=== PATIENT | male | born 1950 | race Caucasian/White ===

== ENCOUNTER 2018-03-07 17:28 | Inpatient (IN) ==
[2018-03-07] MEDS ORDERED: Ketorolac Inj 30 MG/ML (IVP) Vial IV.PUSH ONE (19:13)
[2018-03-07 19:38] LABS: Baso # (Auto) 0.1 th/mm3 (0.0-0.2); Baso % (Auto) 1.6 % (0.0-2.0); Eos # (Auto) 0.3 th/mm3 (0.0-0.4); Eos % (Auto) 3.9 % (0.0-4.0); Hematocrit 45.8 % (39.0-51.0); Hemoglobin 15.5 gm/dL (13.0-17.0); Lymph # (Auto) 1.7 th/mm3 (1.0-4.8); Lymph % (Auto) 23.2 % (9.0-44.0); Mean Corpuscular HGB Conc 33.8 % (32.0-36.0); Mean Corpuscular Volume 97.6 fL (80.0-100.0); Mean Platelet Volume 9.6 fL (7.0-11.0); Mono # (Auto) 0.8 th/mm3 (0.0-0.9); Mono % (Auto) 11.9 % (0.0-8.0); Neut # (Auto) 4.2 th/mm3 (1.8-7.7); Neut % (Auto) 59.4 % (16.0-70.0); Platelet Count 161 th/mm3 (150-450); Red Cell Distribution Width 13.5 % (11.6-17.2); White Blood Count 7.1 th/mm3 (4.0-11.0)
[2018-03-07 19:45] LABS: Chloride 106 meq/L (98-107); Potassium 4.1 meq/L (3.5-5.1); Sodium 139 meq/L (136-145)
[2018-03-07 19:48] LABS: Albumin 3.6 g/dL (3.4-5.0); Anion Gap 9 meq/L (5-15); Calcium 8.5 mg/dL (8.5-10.1); Carbon Dioxide 24.2 meq/L (21.0-32.0); Glucose,Random 95 mg/dL (74-106)
[2018-03-07 19:49] LABS: Blood Urea Nitrogen 25 mg/dL (7-18)
[2018-03-07 19:52] LABS: Aspartate Aminotransferase 20 U/L (15-37); Glomerular Filtration Rate 67 mL/min (>89)
[2018-03-07 19:53] LABS: Total Protein 6.9 g/dL (6.4-8.2)
[2018-03-07 19:54] LABS: Alkaline Phosphatase 63 U/L (45-117)
[2018-03-07 19:56] LABS: Alanine Aminotransferase 24 U/L (12-78)
--- NOTE | 2018-03-07 20:02 | XR ---
EXAM DATE: 03/07/2018 7:58 PM EDT AGE/SEX: 67 years / Male INDICATIONS: . Right posterior shoulder pain, no known trauma. CLINICAL DATA: This is the patient's initial encounter. Patient reports that signs and symptoms have been present for 2 days and indicates a pain score of 4/10. MEDICAL/SURGICAL HISTORY: None. None. COMPARISON: No prior exams available for comparison. FINDINGS: PA and lateral views of the chest. Linear atelectasis or scarring at the right lung base. The lungs are otherwise clear. Cardiomediastinal silhouette within normal limits. No evidence of pl eural effusion or pneumothorax. CONCLUSION: Atelectasis or scarring at right lung base. No other acute cardiopulmonary disease identi fied. Electronically signed by: Lew Lu MD 03/07/2018 8:01 PM EDT
--- NOTE | 2018-03-07 20:03 | XR ---
EXAM DATE: 03/07/2018 8:00 PM EDT AGE/SEX: 67 years / Male INDICATIONS: Right posterior shoulder pain, no known trauma. CLINICAL DATA: This is the patient's initial encounter. Patient reports that signs and symptoms have been present for 2 days and indicates a pain score of 4/10. MEDICAL/SURGICAL HISTORY: None. None. COMPARISON: No prior exams available for comparison. FINDINGS: 2 views of the right shoulder. High riding humeral head suggesting rotator cuff tendon insufficiency. Minimal acromial clavicular joint arthritic findings. No evidence of fracture. Glenohumeral joint wi thin normal limits. CONCLUSION: High riding humeral head suggesting rotator cuff tendon insufficiency. Electronically signed by: Lew Lu MD 03/07/2018 8:01 PM EDT
--- NOTE | 2018-03-07 20:21 | ED ---
HPI General Chief complaint: Shortness of Breath/Dyspnea Stated complaint: c/oR back pain x 2 days Time Seen by Provider: 03/07/18 19:12 Source: patient Mode of arrival: ambulatory Limitations: no limitations History of Present Illness HPI narrative: Patient is a 67-year-old male who comes in complaining of right- sided upper back pain. He says this is been going on for the past 2 or 3 months , but in the past few days it has gotten worse. He has taken Tylenol for the pain without relief. He says the pain is worse with walking and standing and sometimes gets so bad he feels short of breath. He denies any urinary symptoms. He denies chest pain. He denies any abdominal pain. He denies fever chills. Severity is mild to moderate. Related Data Home Medications Medication Instructions Recorded Confirmed meclizine 25 mg PO Q4H PRN 03/07/18 03/07/18 melatonin 3 mg PO HS 03/07/18 03/07/18 metoprolol succinate 03/07/18 rivaroxaban 20 mg PO Q6PM 03/07/18 03/07/18 simvastatin 03/07/18 tamsulosin 0.4 mg PO DAILY 03/07/18 03/07/18 Allergies Allergy/AdvReac Type Severity Reaction Status Date / Time No Known Allergies Allergy Unverified 03/07/18 17:57 Review of Systems ROS: all other systems reviewed are negative Constitutional Denies chills and Denies fever(s) ENT Denies dizziness Cardiovascular Denies chest pain Respiratory Denies cough Gastrointestinal Denies abdominal pain, Denies nausea and Denies vomiting Musculoskeletal Reports back pain Integumentary/Breasts Denies rash and Denies wounds Neurologic Denies numbness and Denies weakness PMFSH Medical History Medical History DVT (deep venous thrombosis) (Acute) Enlarged prostate (Acute) Pulmonary embolism (Acute) Vertigo (Acute) Surgical History Surgical History History of appendectomy (Acute) Hx of tonsillectomy (Acute) Social History Social History Substance History: No History of Abuse Second Hand Smoke Exposure: No Smoking Status: Former smoker How Often Do You Have a Drink Containing Alcohol: Never Recent Travel in [facility] within the Last 8 Weeks: Yes Recent Out of Country Travel within the Last 8 Weeks: No Immunization History Tetanus Immunization: <5 Years Hx Influenza Vaccine This Season: Yes Exam Narrative Exam Narrative: GENERAL: Awake and alert, in no acute distress. SKIN: Focused skin assessment warm/dry. No wounds or signs of infection. HEAD: Atraumatic. Normocephalic. EYES: Pupils equal and round. No scleral icterus. ENT: Mucous membranes pink and moist. NECK: Trachea midline. No JVD. CARDIOVASCULAR: Regular rate and rhythm. No murmur appreciated. RESPIRATORY: No accessory muscle use. Clear to auscultation. Breath sounds equal bilaterally. GASTROINTESTINAL: Abdomen soft, non-tender, nondistended. MUSCULOSKELETAL: No obvious deformities. No clubbing. No cyanosis. No edema. No spinal tenderness. Tenderness around the right scapula. No CVA tenderness. NEUROLOGICAL: Awake and alert. No obvious cranial nerve deficits. Motor grossly within normal limits. Normal speech. PSYCHIATRIC: Appropriate mood and affect; insight and judgment normal. Course Initial Documented Vital Signs Temperature 98.8 F 03/07/18 17:54 Pulse Rate 70 03/07/18 17:54 Respiratory Rate 16 03/07/18 17:54 Blood Pressure 101/58 L 03/07/18 17:54 Pulse Oximetry 99 03/07/18 17:54 Last Documented Vital Signs Temperature 98.8 F 03/07/18 17:54 Pulse Rate 60 03/08/18 02:02 Respiratory Rate 20 03/08/18 02:02 Blood Pressure 114/69 03/08/18 02:02 Pulse Oximetry 97 03/08/18 02:02 Medical Decision Making [facility] Narrative Medical decision making narrative: Patient is a 67-year-old male who comes in complaining pain. Exam shows tenderness around the right scapula. IV established, labs sent. X-ray of the chest and scapular ordered. Patient given pain medicine. After taking history and ordering several diagnostic tests and receiving results , patient informed me that he is worried that he might have a pulmonary embolus. He says that he has history of pulmonary emboli and is currently taking Xarelto. He says he felt like this when he was diagnosed with one in 2013. I am not sure why he did not divulge this information when we originally spoke. CTA of the chest ordered shows a right-sided pulmonary emboli. Patient given Lovenox. He does say that his symptoms, while present for the past 2 or 3 months have worsened in the past few days since driving to [place], making this concerning for a new PE.He will be admitted for further management as he has already been on Xarelto and is still forming clots. Medical Screen Exam Complete: Yes Emergency Medical Condition: Yes Differential Diagnosis Differential Diagnosis: Muscle strain versus renal stone versus PE versus pneumonia Medical Records Medical records reviewed: Yes I reviewed the patient's medical records. Lab Data Lab results reviewed: Yes I reviewed the patient's lab results. Result diagrams: 03/07/18 19:15 03/07/18 19:15 Lab Results 03/07/18 03/07/18 03/07/18 Range/Units 19:15 19:15 19:15 CBC w Diff Auto diff final WBC 7.1 (4.0-11.0) th/mm3 RBC 4.70 (4.50-5.90) mil/mm3 Hgb 15.5 (13.0-17.0) gm/dL Hct 45.8 (39.0-51.0) % MCV 97.6 (80.0-100.0) fL MCH 33.0 (27.0-34.0) pg MCHC 33.8 (32.0-36.0) % RDW 13.5 (11.6-17.2) % Plt Count 161 (150-450) th/mm3 MPV 9.6 (7.0-11.0) fL Neut % (Auto) 59.4 (16.0-70.0) % Lymph % (Auto) 23.2 (9.0-44.0) % [place] % (Auto) 11.9 H (0.0-8.0) % Eos % (Auto) 3.9 (0.0-4.0) % Baso % (Auto) 1.6 (0.0-2.0) % Neut # (Auto) 4.2 (1.8-7.7) th/mm3 Lymph # (Auto) 1.7 (1.0-4.8) th/mm3 [place] # (Auto) 0.8 (0.0-0.9) th/mm3 Eos # (Auto) 0.3 (0.0-0.4) th/mm3 Baso # (Auto) 0.1 (0.0-0.2) th/mm3 WBC Differential . Differential Comment . Sodium 139 (136-145) meq/L Potassium 4.1 (3.5-5.1) meq/L Chloride 106 (98-107) meq/L Carbon Dioxide 24.2 (21.0-32.0) meq/L Anion Gap 9 (5-15) meq/L BUN 25 H (7-18) mg/dL Creatinine 1.10 (0.60-1.30) mg/dL Estimated GFR 67 L (>89) mL/min Random Glucose 95 (74-106) mg/dL Calcium 8.5 (8.5-10.1) mg/dL Total Bilirubin 0.9 (0.2-1.0) mg/dL AST 20 (15-37) U/L ALT 24 (12-78) U/L Alkaline Phosphatase 63 (45-117) U/L Troponin I Less than 0.02 L (0.02-0.05) ng/mL B-Natriuretic Peptide 52 (0-100) pg/mL Total Protein 6.9 (6.4-8.2) g/dL Albumin 3.6 (3.4-5.0) g/dL Urine Color (Yellw/Straw) Urine Clarity (Clear) Urine pH (5.0-8.5) Ur Specific [place] (1.002-1.035) Urine Protein (Neg-Trace) mg/dL Urine Glucose (UA) (Negative) mg/dL Urine Ketones (Negative) mg/dL Urine Occult Blood (Negative) Urine Nitrate (Negative) Urine Bilirubin (Negative) Urine Urobilinogen (Less than 2) mg/dL Ur Leukocyte Esterase (Negative) Urine RBC (0-3) /hpf Urine WBC (0-5) /hpf Ur Squamous Epith Cells (0-5) /hpf Micro UA Comment Ur Microscopic Review Urine Culture Comments 03/07/18 Range/Units 20:00 CBC w Diff WBC (4.0-11.0) th/mm3 RBC (4.50-5.90) mil/mm3 Hgb (13.0-17.0) gm/dL Hct (39.0-51.0) % MCV (80.0-100.0) fL MCH (27.0-34.0) pg MCHC (32.0-36.0) % RDW (11.6-17.2) % Plt Count (150-450) th/mm3 MPV (7.0-11.0) fL Neut % (Auto) (16.0-70.0) % Lymph % (Auto) (9.0-44.0) % [place] % (Auto) (0.0-8.0) % Eos % (Auto) (0.0-4.0) % Baso % (Auto) (0.0-2.0) % Neut # (Auto) (1.8-7.7) th/mm3 Lymph # (Auto) (1.0-4.8) th/mm3 [place] # (Auto) (0.0-0.9) th/mm3 Eos # (Auto) (0.0-0.4) th/mm3 Baso # (Auto) (0.0-0.2) th/mm3 WBC Differential Differential Comment Sodium (136-145) meq/L Potassium (3.5-5.1) meq/L Chloride (98-107) meq/L Carbon Dioxide (21.0-32.0) meq/L Anion Gap (5-15) meq/L BUN (7-18) mg/dL Creatinine (0.60-1.30) mg/dL Estimated GFR (>89) mL/min Random Glucose (74-106) mg/dL Calcium (8.5-10.1) mg/dL Total Bilirubin (0.2-1.0) mg/dL AST (15-37) U/L ALT (12-78) U/L Alkaline Phosphatase (45-117) U/L Troponin I (0.02-0.05) ng/mL B-Natriuretic Peptide (0-100) pg/mL Total Protein (6.4-8.2) g/dL Albumin (3.4-5.0) g/dL Urine Color Yellow (Yellw/Straw) Urine Clarity Clear (Clear) Urine pH 6.0 (5.0-8.5) Ur Specific [place] 1.020 (1.002-1.035) Urine Protein Negative (Neg-Trace) mg/dL Urine Glucose (UA) Negative (Negative) mg/dL Urine Ketones Negative (Negative) mg/dL Urine Occult Blood Negative (Negative) Urine Nitrate Negative (Negative) Urine Bilirubin Negative (Negative) Urine Urobilinogen 1.0 (Less than 2) mg/dL Ur Leukocyte Esterase Negative (Negative) Urine RBC 0-3 (0-3) /hpf Urine WBC 0-5 (0-5) /hpf Ur Squamous Epith Cells 0-5 (0-5) /hpf Micro UA Comment Culture not ind Ur Microscopic Review Microscopic reviewed Urine Culture Comments Culture not ind Imaging Data Radiologist's impression: Chest X-Ray 03/07/18 19:13 CONCLUSION: Atelectasis or scarring at right lung base. No other acute cardiopulmonary disease identified. Scapula X-Ray 03/07/18 19:13 CONCLUSION: High riding humeral head suggesting rotator cuff tendon insufficiency. Abdomen/Pelvis CT 03/07/18 20:32 CONCLUSION: 1. Tiny gallstone. 2. Fat-containing left inguinal hernia. 3. No definite acute CT findings in the abdomen or pelvis. Chest CTA 03/07/18 21:38 CONCLUSION: 1. Truncation of right lower lobe branches and filling defect at the proximal right lower lobe pulmonary artery. Findings indicate age-indeterminate pulmonary embolus. The patient gives a history of pulmonary embolism. No comparison studies are available. 2. Mild emphysema. Scarring at the right lower lobe. Discharge Plan Discharge Disposition Patient Disposition: 30 Still Patient Discharge Condition Condition: Stable Discharge Details Diagnosis: Pulmonary embolism on right Physicians Team ED Provider: Yaneth Vázquez Primary Care Provider: [facility] [place] Attending Provider: Shameka Puga Other Providers: Hiram Day Discharge Interventions Interventions: ED Discharge Assessment Last Done: 03/08/18 02:00 Vital Signs Last Done: 03/08/18 02:02 Status ED Status: Left Department Discharge Information Discharge Date/Time: 03/08/18 02:03
[2018-03-07 20:39] LABS: Bilirubin,Urine Negative (Negative); Clarity,Urine Clear (Clear); Color,Urine Yellow (Yellw/Straw); Glucose,Urine (UA) Negative (Negative); Leukocyte Esterase,Urine Negative (Negative); Nitrite,Urine Negative (Negative)
[2018-03-07 20:49] LABS: RBC,Urine 0-3 /hpf (0-3); WBC,Urine 0-5 /hpf (0-5)
[2018-03-07 20:50] LABS: Squamous Epithelial Cell,Urine 0-5 /hpf (0-5)
--- NOTE | 2018-03-07 23:03 | CT ---
EXAM DATE: 03/07/2018 10:47 PM EDT AGE/SEX: 67 years / Male INDICATIONS: Abdominal pain. CLINICAL DATA: This is the patient's initial encounter. Patient reports that signs and symptoms have been present for 1 day and indicates a pain score of 5/10. MEDICAL/SURGICAL HISTORY: . Deep venous thrombosis. Enlarged prostate. Pulmonary embolism. Vert igo. Appendectomy. Tonsillectomy. RADIATION DOSE: 17.33 CTDI (mGy) COMPARISON: No prior exams available for comparison. TECHNIQUE: Multiple contiguous axial images were obtained through the abdomen. Images were obtained using multiple row detector helical technique. Using automated exposure control and adjustment of the mA and/or kV according to patient size, radiation dose was kept as low as reasonably achievable to o btain optimal diagnostic quality images. DICOM format image data is available electronically for rev iew and comparison. FINDINGS: Lower Lungs: Mild scarring or atelectasis in the right lung base. Liver: The liver has a homogeneous density without space-occupying lesion. There is no dilation of th e biliary tree. Tiny gallstone. Spleen: Homogeneous density without enlargement. Pancreas: Unremarkable without mass or calcification. Kidneys: Normal in size and shape. No evidence of mass or hydronephrosis. Adrenal Glands: Unremarkable. Aorta: The aorta and proximal iliac vessels are grossly unremarkable without aneurysmal dilation. Bowel/Mesentery: The bowel loops are grossly unremarkable. The cecum and sigmoid colon have a normal configuration. Abdominal Wall: Intact. Retroperitoneum: No evidence of adenopathy in the retrocrural, para-aortic, or deep pelvic regions. Bladder: Contours are smooth. Reproductive Organs: Prostate is enlarged. No evidence of pelvic mass or free fluid. Inguinal: Fat-containing left inguinal hernia. Bony Structures: Unremarkable. CONCLUSION: 1. Tiny gallstone. 2. Fat-containing left inguinal hernia. 3. No definite acute CT findings in the abdomen or pelvis. Electronically signed by: Jason Redding MD 03/07/2018 11:02 PM EDT
--- NOTE | 2018-03-07 23:04 | CT ---
EXAM DATE: 03/07/2018 10:47 PM EDT AGE/SEX: 67 years / Male INDICATIONS: Back and chest pain. CLINICAL DATA: This is the patient's initial encounter. Patient reports that signs and symptoms have been present for 1 day and indicates a pain score of 5/10. MEDICAL/SURGICAL HISTORY: . Deep venous thrombosis. Enlarged prostate. Pulmonary embolism. Vertigo. Appendectomy. Tonsillectomy. RADIATION DOSE: 17.02 CTDI (mGy) COMPARISON: No prior exams available for comparison. TECHNIQUE: Volumetric scanning was performed using a multi-row detector CT scanner during bolus infu phil of 75 ml Omnipaque 350 (iohexol) nonionic water-soluble contrast as a single exam dose. The miri a was post processed with a variety of visualization algorithms including full volume maximum intensi ty projection and sliding thin slab reformation. Using automated exposure control and adjustment of the mA and/or kV according to patient size, radiation dose was kept as low as reasonably achievable t o obtain optimal diagnostic quality images. DICOM format image data is available electronically for review and comparison. FINDINGS: Pulmonary Arteries: There is truncation and attenuation of lower lobe branches of the right pulmonar y artery. Filling defect of proximal lower lobe branch is noted. Findings indicate pulmonary embolus. This finding is age-indeterminate and could represent an old pulmonary embolus. No abnormal filling defects on the left or in the right upper lobe or middle lobe branches. Lung: Mild paraseptal emphysema at the apices. Scarring at the right lower lobe. Effusion: None. Mediastinum: No evidence of mediastinal or hilar adenopathy. Coronary artery calcification. Other: The axilla is unremarkable. CONCLUSION: 1. Truncation of right lower lobe branches and filling defect at the proximal right lower lobe pulmo nary artery. Findings indicate age-indeterminate pulmonary embolus. The patient gives a history of pu lmonary embolism. No comparison studies are available. 2. Mild emphysema. Scarring at the right lower lobe. Electronically signed by: Lew Lu MD 03/07/2018 11:03 PM EDT
[2018-03-07] MEDS ORDERED: Enoxaparin Inj 100 MG/ML Syringe SQ ONE (23:39)
[2018-03-07] MEDS ORDERED: Acetaminophen 325 MG Tablet PO PRN (23:57)
[2018-03-07] MEDS ORDERED: Bisacodyl 10 MG Supp RECTAL PRN (23:57)
[2018-03-08 02:03] VITALS: RESP 20
[2018-03-08 08:23] LABS: Baso % (Auto) 0.6 % (0.0-2.0); Eos # (Auto) 0.3 th/mm3 (0.0-0.4); Eos % (Auto) 4.6 % (0.0-4.0); Hematocrit 42.8 % (39.0-51.0); Hemoglobin 14.8 gm/dL (13.0-17.0); Lymph # (Auto) 1.8 th/mm3 (1.0-4.8); Lymph % (Auto) 31.5 % (9.0-44.0); Mean Corpuscular HGB Conc 34.7 % (32.0-36.0); Mean Corpuscular Hemoglobin 33.1 pg (27.0-34.0); Mean Corpuscular Volume 95.3 fL (80.0-100.0); Mean Platelet Volume 10.2 fL (7.0-11.0); Mono # (Auto) 0.6 th/mm3 (0.0-0.9); Neut % (Auto) 53.3 % (16.0-70.0); Platelet Count 170 th/mm3 (150-450); Red Blood Count 4.49 mil/mm3 (4.50-5.90); Red Cell Distribution Width 13.9 % (11.6-17.2); White Blood Count 5.7 th/mm3 (4.0-11.0)
[2018-03-08 08:48] LABS: Chloride 106 meq/L (98-107); Potassium 3.8 meq/L (3.5-5.1); Sodium 140 meq/L (136-145)
[2018-03-08 08:53] LABS: Albumin 3.2 g/dL (3.4-5.0)
[2018-03-08 08:57] LABS: Alanine Aminotransferase 22 U/L (12-78); Aspartate Aminotransferase 16 U/L (15-37); Glomerular Filtration Rate Greater Than 89 mL/min (>89)
[2018-03-08 08:58] LABS: Total Protein 6.1 g/dL (6.4-8.2)
[2018-03-08 08:59] LABS: Alkaline Phosphatase 56 U/L (45-117)
[2018-03-08] MEDS ORDERED: Enoxaparin Inj 100 MG/ML Syringe SQ SCH (09:00)
[2018-03-08] MEDS ORDERED: Senna/Docusate Sodium 8.6/50 MG Tablet PO SCH (09:00)
[2018-03-08] MEDS ORDERED: Budesonide-Formoterol 160/4.5 MCG 6 GM Inhaler INH SCH (09:00)
[2018-03-08 09:13] LABS: Calcium 8.4 mg/dL (8.5-10.1)
[2018-03-08 09:14] LABS: Anion Gap 10 meq/L (5-15); Blood Urea Nitrogen 21 mg/dL (7-18); Carbon Dioxide 23.6 meq/L (21.0-32.0); Glucose,Random 81 mg/dL (74-106)
--- NOTE | 2018-03-08 11:22 | P.HPIM ---
History of Present Illness Service: Medicine Primary Care Physician: Physician [facility] Chief Complaint: right sided back pain History of Present Illness: This is a 67-year-old male past medical history hypertension, pulmonary embolism on Xarelto for this, right shoulder rotator cuff tear who presented with back pain for about 3-4 months. Patient stated that his back pain started about 3 or 4 months ago and he thought it was a pulled muscle since he has a right shoulder rotator cuff tear. Patient treated with [id number] medication. He stated that about 4 days ago the back pain worsen after moving. Patient stated he just recently moved from [place] to [place] and did all the moving himself which includes lifting. Back pain located in the right mid to lower back. Is constant. Patient denies any shortness of breathing. He stated that he had pulmonary embolism twice in his life and that he is on Xarelto for this. Back pain is chronic but worse in after he did some lifting from his moving. Otherwise he had no other complaints. Inpatient Certification: I certify that the inpatient services were ordered in accordance with Medicare regulations governing the order. This includes certification that hospital inpatient services are reasonable and necessary and in the case of services not specified as inpatient-only under 42 CFR 419.22(n), that they are appropriately provided as inpatient services in accordance to with the 2-midnight benchmark under 43 CFR 412.3(e) Estimated Total Length of Stay (Days): 2 Plans for Post Hospital Care: Not yet determined Review of Systems Constitutional: Denies anorexia, Denies body ache(s), Denies chills, Denies daytime sleepiness, Denies excessive sweating, Denies fatigue, Denies fever(s), Denies headache(s), Denies increased appetite, Denies lack of energy, Denies malaise, Denies night sweats, Denies weakness, Denies weight gain, Denies weight loss, Denies other Eyes: Denies blind spots, Denies blurry vision, Denies bulging eyes, Denies change in vision, Denies double vision, Denies discharge, Denies dry eyes, Denies floaters, Denies irritation, Denies itchy eyes, Denies loss of vision, Denies pain, Denies requires corrective lenses, Denies sensitivity to light, Denies other Ears, Nose, Mouth, and Throat: Denies abnormal hearing, Denies bleeding gums, Denies bad breath, Denies change in voice, Denies dental pain, Denies difficulty swallowing, Denies dizziness, Denies dry mouth, Denies ear discharge , Denies ear pain, Denies facial pain, Denies headache(s), Denies hearing loss, Denies hoarseness, Denies lip swelling, Denies nosebleed, Denies mouth lesions, Denies mouth pain, Denies nasal congestion, Denies nasal discharge, Denies nasal obstruction, Denies nasal trauma, Denies neck lump, Denies neck pain, Denies nose pain, Denies pain with swallowing, Denies poor balance, Denies post nasal drip, Denies ringing in the ears, Denies sinus pain, Denies sinus pressure , Denies sore throat, Denies throat swelling, Denies tongue swelling, Denies other Cardiovascular: Denies chest pain, Denies chest pain at rest, Denies chest pain with activity, Denies excessive sweating, Denies fainting, Denies fast heart rate, Denies foot swelling, Denies generalized swelling, Denies irregular heart rhythm, Denies leg pain with activity, Denies leg sores, Denies leg swelling, Denies lightheadedness, Denies radiating jaw, neck or arm pain, Denies rapid, pounding, or irregular heartbeat, Denies shortness of breath, Denies shortness of breath with activity, Denies shortness of breath when lying down, Denies shortness of breath causing sudden awakening, Denies slow heart rate, Denies other Respiratory: Denies change in phlegm color, Denies chest congestion, Denies cough, Denies coughing up blood, Denies excessive phlegm production, Denies pain on inspiration, Denies pain with cough, Denies shortness of breath, Denies shortness of breath with activity, Denies snoring, Denies stridor, Denies wheezing, Denies other Gastrointestinal: Denies abdominal pain, Denies belching, Denies black, tarry stools, Denies bloating, Denies bright, red blood in stools, Denies change in bowel habits, Denies constant urge to pass stool, Denies change in stools, Denies coffee ground vomit, Denies constipation, Denies cramping, Denies difficulty swallowing, Denies excessive passing of gas, Denies feeling full early, Denies heartburn, Denies incontinent of stools, Denies loose stools, Denies nausea, Denies pain with swallowing, Denies vomiting, Denies vomiting blood, Denies other Genitourinary: Denies blood in semen, Denies blood in urine, Denies decreased urination, Denies difficulty urinating, Denies difficulty with ejaculations, Denies erectile dysfunction, Denies genital lesions, Denies genital pain, Denies painful urination, Denies side pain, Denies frequent nighttime urination , Denies painful ejaculations, Denies penile discharge, Denies scrotal swelling , Denies testicle lump, Denies testicle pain, Denies urinary frequency, Denies urinary hesitancy, Denies urinary incontinence, Denies urinary urgency, Denies other Musculoskeletal: Reports back pain, Denies abnormal walking, Denies body aches, Denies decreased muscle mass, Denies deformity, Denies joint pain, Denies joint swelling, Denies limited joint movement, Denies loss of height, Denies muscle cramps, Denies muscle weakness, Denies neck pain, Denies numbness, Denies radiating pain into limb, Denies stiffness, Denies tingling, Denies other Skin/Breast: Denies acne, Denies bleeding lesions, Denies boil, Denies breast swelling, Denies breast skin changes, Denies breast pain, Denies breast lump, Denies change in breast shape, Denies change in hair, Denies change in skin color, Denies changing lesions, Denies dry skin, Denies excessive hair growth, Denies hair loss, Denies itching, Denies lesions, Denies nail changes, Denies new lesions, Denies nipple discharge, Denies non-healing lesions, Denies redness , Denies sensitivity to light, Denies rash, Denies skin pain, Denies skin ulcer , Denies sores, Denies stretch topete, Denies unusual bruising, Denies wounds, Denies yellowing of the skin, Denies other Neurologic: Denies abnormal hearing, Denies abnormal movements, Denies abnormal speech, Denies abnormal walking, Denies behavioral changes, Denies burning sensations, Denies confusion, Denies dizziness, Denies fainting, Denies frequent falls, Denies headache(s), Denies lack of coordination, Denies localized weakness, Denies loss of vision, Denies memory loss, Denies numbness, Denies other visual disturbances, Denies radiating pain, Denies restless legs, Denies convulsions, Denies seizure-like activity, Denies sensory deficit, Denies tingling, Denies tingling/numbness/burning sensations, Denies tremor(s), Denies unsteadiness, Denies weakness, Denies other Psychiatric: Denies abnormal sleep pattern, Denies anxiety, Denies behavioral changes, Denies change in appetite, Denies change in sex drive, Denies confusion , Denies depression, Denies difficulty concentrating, Denies hearing things others do not hear, Denies hopelessness, Denies irritability, Denies lack of enjoyment, Denies memory loss, Denies mood swings, Denies panic attacks, Denies paranoia, Denies seeing things others do not see, Denies sensing things others do not sense, Denies tactile hallucinations, Denies thoughts of hurting/killing others, Denies thoughts of hurting/killing yourself, Denies other Endocrine: Denies cold intolerance, Denies excessive sweating, Denies flushing, Denies heat intolerance, Denies increased hunger, Denies increased thirst, Denies increased urination, Denies rapid, pounding, or irregular heartbeat, Denies other Hematologic/Lymphatic: Denies easy bleeding, Denies easy bruising, Denies enlarged lymph nodes, Denies other Allergic/Immunologic: Denies GI upset with certain foods, Denies hives, Denies itchy eyes, Denies lip swelling, Denies seasonal runny nose, Denies throat swelling, Denies tongue swelling, Denies wheezing, Denies other PMFSH - History History Provided By: Patient - Medical History Medical History: Medical History (Last Reviewed 03/07/18 @ 20:20 by Yaneth Vázquez MD) DVT (deep venous thrombosis) Enlarged prostate Pulmonary embolism Vertigo - Surgical History Surgical History: Surgical History (Last Reviewed 03/07/18 @ 20:21 by Yaneth Vázquez MD) History of appendectomy Hx of tonsillectomy - Family History Family History: Family History (Last Updated 03/08/18 @ 11:18 by Blanca Robles MD) Other No pertinent family history - Social History I have reviewed the patient's Social History: Yes - Tobacco History Second Hand Smoke Exposure: No Smoking Status: Former smoker - Alcohol History How Often Do You Have a Drink Containing Alcohol: Never - Substance Use History Substance History: No History of Abuse - Travel History Recent Travel in the [place] Within the Last 8 Weeks: Yes Recent Travel Out of the Country Within the Last 8 Weeks: No - Immunization History Tetanus Immunization: <5 Years Hx Influenza Vaccine This Season: Yes Medications and Allergies Active Medications: Active Medications Acetaminophen (Tylenol) 650 mg PO Q4H PRN PRN Reason: Temp > 100.4 Al Hydroxide/Mg Hydroxide (Milk Of Magnesia Liq) 30 ml PO Q12H PRN PRN Reason: Mild Constipation Albuterol (Duoneb Neb (Prn)) 1 ampul NEB Q4HR NEB PRN PRN Reason: SOB/WHEEZING Bisacodyl (Dulcolax Supp) 10 mg RECTAL DAILY PRN PRN Reason: SEVERE CONSITIPATION Budesonide/Formoterol Fumarate (Symbicort 160/4.5 Mcg Inh) 2 puff INH BID [facility] Last Admin: 03/08/18 08:20 Dose: Not Given Cyclobenzaprine HCl (Flexeril) 5 mg PO Q8HR [facility] Enoxaparin Sodium (Lovenox Inj) 90 mg SQ Q12HR [facility] Last Admin: 03/08/18 08:20 Dose: 90 mg Lactulose (Lactulose Liq) 30 ml PO DAILY PRN PRN Reason: SEVERE CONSITIPATION Lidocaine HCl (Lidoderm 5% Patch.12 Hr) 1 patch T-DERMAL DAILY [facility] Miscellaneous (Pill Splitter) 1 each OTHER UNSCH PRN PRN Reason: SEE LABEL COMMENTS Ondansetron HCl (Zofran Inj) 4 mg IV.PUSH Q6H PRN PRN Reason: NAUSEA OR VOMITING Patch Removal (Remove Old Patch) 1 each T-DERMAL HS [facility] Senna/Docusate Sodium (Shital-Colace) 1 tab PO BID [facility] Last Admin: 03/08/18 08:19 Dose: 1 tab Sennosides (Senokot) 17.2 mg PO Q12H PRN PRN Reason: Moderate Constipation Tramadol HCl (Ultram) 50 mg PO Q6H PRN PRN Reason: PAIN 1-10 AND/OR FEVER >101F Allergies Allergy/AdvReac Type Severity Reaction Status Date / Time No Known Allergies Allergy Unverified 03/07/18 17:57 Home Medications Medication Instructions Recorded Confirmed Type meclizine 25 mg PO Q4H PRN 03/07/18 03/07/18 History melatonin 3 mg PO HS 03/07/18 03/07/18 History metoprolol succinate 03/07/18 History rivaroxaban 20 mg PO Q6PM 03/07/18 03/07/18 History simvastatin 03/07/18 History tamsulosin 0.4 mg PO DAILY 03/07/18 03/07/18 History Exam Vital signs: Vital Signs 03/07/18 17:54 03/07/18 19:00 03/07/18 21:34 Temperature 98.8 F Pulse Rate 70 64 62 Respiratory Rate 16 18 18 Blood Pressure 101/58 L 112/65 114/65 Pulse Oximetry 99 99 99 03/08/18 00:13 03/08/18 00:18 03/08/18 02:02 Temperature Pulse Rate 60 60 60 Respiratory Rate 18 20 Blood Pressure 113/72 114/69 Pulse Oximetry 98 97 03/08/18 02:15 03/08/18 03:00 03/08/18 04:00 Temperature 96 F L 96 F L Pulse Rate 57 L 54 L 62 Respiratory Rate 20 20 Blood Pressure 118/76 101/59 L Pulse Oximetry 99 99 03/08/18 08:00 Temperature 97.6 F Pulse Rate 62 Respiratory Rate 20 Blood Pressure 117/77 Pulse Oximetry Intake & Output 03/07/18 03/08/18 03/08/18 18:59 06:59 18:59 Intake Total 60 / 60 Output Total 275 / 275 Balance -215 / -215 Weight 89.2 kg 87.1 kg Intake: Oral 60 / 60 Output: Urine 275 / 275 Other: # Voids 1 Weight On Admission 86.8 kg - Constitutional no acute distress - Routine HEENT Exam Head: Present: normocephalic, atraumatic Eye: Present: EOMI, PERRL ENT: Present: mucous membranes moist - Routine Neck Exam Present: supple, full ROM - Routine Respiratory Exam Present: CTA bilaterally - Routine Cardiovascular Exam Present: RRR, S1, S2 Comments: No rubs murmurs or gallops. - Routine Abdominal Exam Present: soft, normoactive bowel sounds - Routine Extremities Exam Comments: Patient has bilateral paraspinal muscle spasms. And also most spasm of his back muscles. Positive tenderness to palpation of his muscle in the mid to lower back. - Routine Skin Exam Present: intact - Routine Neurological Exam Present: alert, oriented X3 Strength and sensation grossly intact. Results - Labs CBC & Chem 7: 03/08/18 07:33 03/08/18 07:33 Labs: Short CBC 03/07/18 03/08/18 Range/Units 19:15 07:33 WBC 7.1 5.7 (4.0-11.0) th/mm3 Hgb 15.5 14.8 (13.0-17.0) gm/dL Hct 45.8 42.8 (39.0-51.0) % Plt Count 161 170 (150-450) th/mm3 BMP 03/07/18 03/08/18 19:15 07:33 Sodium 139 140 Potassium 4.1 3.8 Chloride 106 106 Carbon Dioxide 24.2 23.6 BUN 25 H 21 H Creatinine 1.10 0.72 Calcium 8.5 8.4 L Cardiac Enzymes 03/07/18 03/08/18 Range/Units 19:15 07:33 Troponin I Less than 0.02 L Less than 0.02 L (0.02-0.05) ng/mL Liver Function 03/07/18 03/08/18 Range/Units 19:15 07:33 Total Bilirubin 0.9 1.1 H (0.2-1.0) mg/dL AST 20 16 (15-37) U/L ALT 24 22 (12-78) U/L Alkaline Phosphatase 63 56 (45-117) U/L Albumin 3.6 3.2 L (3.4-5.0) g/dL Urine 03/07/18 Range/Units 20:00 Urine Color Yellow (Yellw/Straw) Urine Clarity Clear (Clear) Urine pH 6.0 (5.0-8.5) Ur Specific [place] 1.020 (1.002-1.035) Urine Protein Negative (Neg-Trace) mg/dL Urine Glucose (UA) Negative (Negative) mg/dL - Imaging Impressions Chest X-Ray 03/07/18 19:13 CONCLUSION: Atelectasis or scarring at right lung base. No other acute cardiopulmonary disease identified. Scapula X-Ray 03/07/18 19:13 CONCLUSION: High riding humeral head suggesting rotator cuff tendon insufficiency. Abdomen/Pelvis CT 03/07/18 20:32 CONCLUSION: 1. Tiny gallstone. 2. Fat-containing left inguinal hernia. 3. No definite acute CT findings in the abdomen or pelvis. Chest CTA 03/07/18 21:38 CONCLUSION: 1. Truncation of right lower lobe branches and filling defect at the proximal right lower lobe pulmonary artery. Findings indicate age-indeterminate pulmonary embolus. The patient gives a history of pulmonary embolism. No comparison studies are available. 2. Mild emphysema. Scarring at the right lower lobe. Caprini VTE Risk Assessment Caprini VTE Risk Assessment: Moderate/High Risk (score >= 2) Caprini Risk Assessment Model: Point Value = 1 Point Value = 2 Point Value = 3 Point Value = 5 Age 41-60 Minor surgery BMI > 25 kg/m2 Swollen legs Varicose veins or History of unexplained or recurrent spontaneous Oral contraceptives or hormone replacement Sepsis (< 1 month) Serious lung disease, including pneumonia (< 1 month) Abnormal pulmonary function Acute myocardial infarction Congestive heart failure (< 1 month) History of inflammatory bowel disease Medical patient at bed rest Age 61-74 Arthroscopic surgery Major open surgery (> 45 min) Laparoscopic surgery (> 45 min) Malignancy Confined to bed (> 72 hours) Immobilizing plaster cast Central venous access Age >= 75 History of VTE Family history of VTE Factor V Leiden Prothrombin [id number] Lupus anticoagulant Anticardiolipin antibodies Elevated serum homocysteine Heparin-induced thrombocytopenia Other congenital or acquired thrombophilia Stroke (< 1 month) Elective arthroplasty Hip, pelvis, or leg fracture Acute spinal cord injury (< 1 month) Prophylaxis Regimen: Total Risk Factor Score Risk Level Prophylaxis Regimen 0-1 Low Early ambulation 2 Moderate Order ONE of the following: *Sequential Compression Device (SCD) *Heparin 5000 units SQ BID 3-4 Higher Order ONE of the following medications: *Heparin 5000 units SQ TID *Enoxaparin/Lovenox 40 mg SQ daily (WT < 150 kg, CrCl > 30 mL/min) *Enoxaparin/Lovenox 30 mg SQ daily (WT < 150 kg, CrCl > 10-29 mL/min) *Enoxaparin/Lovenox 30 mg SQ BID (WT < 150 kg, CrCl > 30 mL/min) AND/OR *Sequential Compression Device (SCD) 5 or more Highest Order ONE of the following medications: *Heparin 5000 units SQ TID (Preferred with Epidurals) *Enoxaparin/Lovenox 40 mg SQ daily (WT < 150 kg, CrCl > 30 mL/min) *Enoxaparin/Lovenox 30 mg SQ daily (WT < 150 kg, CrCl > 10-29 mL/min) *Enoxaparin/Lovenox 30 mg SQ BID (WT < 150 kg, CrCl > 30 mL/min) AND *Sequential Compression Device (SCD) Assessment and Plan - Plan This is a 67-year-old male past medical history hypertension, BPH, history of pulmonary embolism on Xarelto presented with acute on chronic right mid to lower back pain after lifting heavy items. Acute on chronic right mid to lower back pain -Most likely secondary to musculoskeletal pain. Pain is chronic. CT of abdomen showed no acute process. CTA was also done which showed truncated right lower lobe branches filling defect which is known since patient is being treated for pulmonary embolism. He has no change in respiratory symptoms and he also has no cardiac symptoms. We will prescribe tramadol, Flexeril, Lidoderm patch. Also recommend heating pad. I also recommend patient to not do any heavy lifting so that his shoulder can also heal. Patient stated that he understood. History of PE/BPH/hypertension -Continue with home medication. Disposition Home today. Discharged on home medication also a prescription for tramadol, Flexeril and Lidoderm patch. Cardiac diet. Follow-up with primary care provider within 1 week. H&P: Quality - VTE Deep Vein Thrombosis/Pulmonary Embolism Present on Admission: Yes
[2018-03-08 11:47] VITALS: BP 132/67; PULSE 71; TEMP 96.7; O2SAT 100
[2018-03-08] MEDS ORDERED: Lidocaine 5% Patch T-DERMAL SCH (12:00)
--- NOTE | 2018-03-08 19:07 | ECG ---
Date Performed: 03/07/2018 Time Performed: 20:07:01 PTAGE: 67 years EKG: Sinus rhythm NORMAL ECG NO PREVIOUS TRACING DOCTOR: Sheela Peterson Interpretating Date/Time 03/08/2018 19:06:06
== END 2018-03-08 12:40 | disposition home or self-care (01) ==
LOC: PHED 17:28 → PHEDA 23:57 → PH3 03-08 02:09
PROVIDERS: ADMIT Family Medicine; ATTEND Family Medicine